=== PATIENT | male | born 1990 | race Caucasian/White ===

== ENCOUNTER 2016-11-23 19:29 | Emergency (ER) | payer OTHER, SELFPAY ==
[~2016-11-23] VITALS: Ht 185.4 cm; Wt 61.4 kg
[2016-11-23] MEDS ORDERED: LIDOCAINE 1%, 20ML ONE (20:00)
[2016-11-23] MEDS ORDERED: SODIUM CHLORIDE FLUSH 10ML SYR IVF ONE (20:00)
[2016-11-23] MEDS ORDERED: DIPH,PERTUSS(ACELL),TET VAC/PF 0.5 ML IM-VACC ONE (20:00)
[2016-11-23] MEDS ORDERED: ONDANSETRON 2MG/ML, 2ML IVPush ONE (20:00)
[2016-11-23] MEDS ORDERED: SODIUM CHLORIDE 0.9% 1,000ML IVBOLUS ONE (20:00)
[2016-11-23] MEDS ORDERED: ONDANSETRON 2MG/ML, 2ML ONE (20:03)
[2016-11-23 20:17] LABS: ASPARTATE AMINO TRANSFERASE 23 U/L (15-37); BLOOD UREA NITROGEN 10 mg/dL (7-18)
[2016-11-23 20:38] VITALS: BP 105/62
== END 2016-11-23 20:57 | disposition home or self-care (01) ==
LOC: ED 20:51
DX: L30.9 Dermatitis, unspecified (principal)
CPT/HCPCS: 36415; 80053; 85025; 96361; 96374; 99284; J2405; J7030